=== PATIENT | male | born 1970 | race Caucasian/White ===

== ENCOUNTER → 2021-01-29 | Outpatient (CLI) | payer BC ==
[~2021-01-29] MED LIST: AMLODIPINE BES2.5 MG PO; ASPIR 8181 MG PO; ATORVASTATIN CA20 MG PO; CYCLOBENZAPRINE10 MG PO; EFFIENT10 MG PO; FISH OIL 1,0001 EACH PO; IBU-200200 MG PO; IMDUR ER TAB 6060 MG PO; LASIX TAB 20 MG20 MG PO; LIPITOR TAB 1010 MG PO; LISINOPRIL-HCT1 EACH PO; LOPRESSOR 25 MG25 MG PO; NITROSTAT0.4 MG SL; PANTOPRAZOLE SO40 MG PO; PLAVIX 75 MG TA75 MG PO
== END ==
LOC: HEART CORB 10:26
DX: R07.2 Precordial pain (principal); I25.10 Atherosclerotic heart disease of native coronary artery without angina pectoris; Z95.5 Presence of coronary angioplasty implant and graft; I25.2 Old myocardial infarction; I10 Essential (primary) hypertension; E78.5 Hyperlipidemia, unspecified; K21.9 Gastro-esophageal reflux disease without esophagitis; R60.0 Localized edema; Z79.82 Long term (current) use of aspirin; Z87.891 Personal history of nicotine dependence
CPT/HCPCS: 78452; A9502; J2785

== ENCOUNTER → 2021-02-22 | Outpatient (CLI) | payer BC ==
[2021-02-22 17:10] LABS: HEMOGLOBIN 13.8 gm/dl (14.0-17.5); RED BLOOD COUNT 4.39 M/UL (4.20-5.50); WHITE BLOOD COUNT 12.3 K/UL (4.5-11.0)
[2021-02-22 17:28] LABS: BUN/CREATININE RATIO 18 (0-10)
== END ==
LOC: LAB 16:33
PROVIDERS: Internal Medicine Interventional Cardiology
DX: I25.10 Atherosclerotic heart disease of native coronary artery without angina pectoris (principal); I10 Essential (primary) hypertension; R60.0 Localized edema; R07.2 Precordial pain; E78.5 Hyperlipidemia, unspecified
CPT/HCPCS: 80048; 85025; 85610; 85730

== ENCOUNTER 2021-03-13 07:22 | Outpatient (CLI) | payer BC ==
[~2021-03-13] VITALS: Ht 175.3 cm; Wt 152.4 kg
[~2021-03-13 07:22] MED LIST changes: -AMLODIPINE BES2.5 MG PO; -FISH OIL 1,0001 EACH PO; -IBU-200200 MG PO; -LASIX TAB 20 MG20 MG PO; -PLAVIX 75 MG TA75 MG PO
[2021-03-13] MEDS ORDERED: PLAVIX 75 MG TA75 MG PO (08:24)
[2021-03-13] MEDS ORDERED: AMLODIPINE BES2.5 MG PO (08:24)
[2021-03-13] MEDS ORDERED: FISH OIL 1,0001 EACH PO (08:25)
[2021-03-13 08:26] LABS: HEMOGLOBIN 13.5 gm/dl (14.0-17.5); RED BLOOD COUNT 4.28 M/UL (4.20-5.50); WHITE BLOOD COUNT 9.9 K/UL (4.5-11.0)
[2021-03-13] MEDS ORDERED: LASIX TAB 20 MG20 MG PO (08:27)
[2021-03-13] MEDS ORDERED: LISINOPRIL-HCT1 EACH PO (08:28)
[2021-03-13 09:01] LABS: BUN/CREATININE RATIO 17 (0-10)
[2021-03-13] MEDS ORDERED: IBU-200200 MG PO (12:55)
[2021-03-13 19:42] LABS: HEMOGLOBIN 13.8 gm/dl (14.0-17.5); RED BLOOD COUNT 4.35 M/UL (4.20-5.50); WHITE BLOOD COUNT 11.1 K/UL (4.5-11.0)
[2021-03-13 20:08] LABS: BUN/CREATININE RATIO 14 (0-10)
[2021-03-14 03:08] LABS: HEMOGLOBIN 12.5 gm/dl (14.0-17.5); RED BLOOD COUNT 4.01 M/UL (4.20-5.50); WHITE BLOOD COUNT 9.7 K/UL (4.5-11.0)
[2021-03-14 03:42] LABS: BUN/CREATININE RATIO 15 (0-10)
== END 2021-03-14 10:10 | disposition home or self-care (01) ==
LOC: CATH 07:22 → PROG CARE 11:32 → CATH 03-14 10:10
PROVIDERS: Internal Medicine Interventional Cardiology
DX: I25.119 Atherosclerotic heart disease of native coronary artery with unspecified angina pectoris (principal); E78.5 Hyperlipidemia, unspecified; I10 Essential (primary) hypertension; K21.9 Gastro-esophageal reflux disease without esophagitis; I25.2 Old myocardial infarction; Z95.5 Presence of coronary angioplasty implant and graft; Z87.891 Personal history of nicotine dependence; Z91.19 Patient's noncompliance with other medical treatment and regimen; Z79.82 Long term (current) use of aspirin; Z79.02 Long term (current) use of antithrombotics/antiplatelets; Z79.899 Other long term (current) drug therapy
CPT/HCPCS: 36415; 80048; 82550; 82553; 84484; 85025; 85027; 85347; 85610; 85730; 93005; 99152; 99153; C1725; C1769; C1874; C1887; C1894; C9600; J0461; J1644; J2250; J3010; J3246; J7030; Q9967

== ENCOUNTER → 2022-02-25 | Outpatient (CLI) | payer BC ==
[~2022-02-25] MED LIST changes: +AMLODIPINE BES2.5 MG PO; +FISH OIL 1,0001 EACH PO; +IBU-200200 MG PO; +LASIX TAB 20 MG20 MG PO; +PLAVIX 75 MG TA75 MG PO
== END ==
LOC: HEART CORB 10:17
DX: I25.119 Atherosclerotic heart disease of native coronary artery with unspecified angina pectoris (principal); I10 Essential (primary) hypertension; E78.5 Hyperlipidemia, unspecified; Z95.5 Presence of coronary angioplasty implant and graft
CPT/HCPCS: 78452; A9502; J2785

== ENCOUNTER 2022-03-06 11:54 | Inpatient (IN) | payer BC ==
[~2022-03-06] VITALS: Ht 175.3 cm; Wt 69.6 kg
[2022-03-06 12:28] LABS: HEMOGLOBIN 14.1 gm/dl (14.0-17.5); RED BLOOD COUNT 4.49 M/UL (4.20-5.50)
[2022-03-06 14:04] LABS: BUN/CREATININE RATIO 19 (0-10)
[2022-03-06] MEDS ORDERED: ATORVASTATIN CA80 MG PO (14:29)
[2022-03-06] MEDS ORDERED: ISOSORBIDE MONO30 MG PO (14:29)
== END 2022-03-06 18:33 | disposition short-term general hospital (02) | DRG 287 ==
LOC: ER1 11:54 → CDU 13:10 → PROG CARE 14:00
PROVIDERS: Emergency Medicine; ADMIT Internal Medicine Interventional Cardiology
PROC: 4A023N7 Measurement of Cardiac Sampling and Pressure, Left Heart, Percutaneous Approach (ICD-10-PCS; principal; 2022-03-06)
PROC: B2111ZZ Fluoroscopy of Multiple Coronary Arteries using Low Osmolar Contrast (ICD-10-PCS; 2022-03-06)
DX: I25.110 Atherosclerotic heart disease of native coronary artery with unstable angina pectoris (principal); T82.855A Stenosis of coronary artery stent, initial encounter; I10 Essential (primary) hypertension; E66.9 Obesity, unspecified; K21.9 Gastro-esophageal reflux disease without esophagitis; E78.5 Hyperlipidemia, unspecified; Z95.5 Presence of coronary angioplasty implant and graft; Z90.49 Acquired absence of other specified parts of digestive tract; Z98.890 Other specified postprocedural states; Z82.49 Family history of ischemic heart disease and other diseases of the circulatory system; Z79.82 Long term (current) use of aspirin; Z79.899 Other long term (current) drug therapy
CPT/HCPCS: 71045; 80053; 81001; 82550; 82553; 84484; 85025; 87086; 93005; 99152; 99153; 99285; C1769; C1894; J0583; J1644; J2250; J3010; J7030; Q9967